=== PATIENT | female | born 1950 | race Two or more races ===

== ENCOUNTER 2021-01-23 09:07 | Outpatient (CLI) | payer OTHER | END 2021-01-23 09:16 | disposition home or self-care (01) | LOC: SONOGRAMA 09:07 | PROVIDERS: ATTEND Pathology Anatomic Pathology & Clinical Pathology | DX: D34 Benign neoplasm of thyroid gland (principal); E06.5 Other chronic thyroiditis; E04.2 Nontoxic multinodular goiter ==